=== PATIENT | male | born 1970 | race Two or more races ===

== ENCOUNTER → 2020-04-15 | Emergency (ER) | payer SELFPAY ==
[~2020-04-15] VITALS: Ht 165.1 cm; Wt 65.8 kg
[~2020-04-15] MED LIST: NALOXONE HCL 1MG/ML 2ML SYRINGE IV ONE
[2020-04-15 20:32] LABS: Basophils # (auto) 0.1 10 ^3/uL (0-0.2); Basophils % (auto) 0.6 % (0.0-2.0); Eosinophils # (auto) 0.3 10 ^3/uL (0-0.8); Hematocrit 48.2 % (41.0-53.0); Hemoglobin 16.3 g/dL (13.5-17.5); Lymphocytes # (auto) 1.6 10 ^3/uL (0.4-5.4); Lymphocytes % (auto) 14.2 % (10.0-50.0); Mean Corpuscular Hemoglobin 31.4 pg (28.0-32.0); Mean Corpuscular Hgb Conc. 33.9 g/dL (32.0-36.0); Mean Corpuscular Volume 92.7 fL (80.0-100.0); Monocytes # (auto) 0.8 10 ^3/uL (0-1.3); Monocytes % (auto) 6.5 % (0.0-12.0); Neutrophils # (auto) 8.7 10 ^3/uL (1.6-8.6); Neutrophils % (auto) 75.7 % (37.0-80.0); Nucleated Red Blood Cells % 0.1 %; Platelet Count (auto) 287 10^3/uL (140-450); White Blood Cell 11.6 10^3/uL (4.4-10.8)
[2020-04-15 20:50] LABS: Albumin 3.8 g/dL (3.4-5.0); Anion Gap 6 (5-15); Blood Alcohol < 3.0 mg/dL (0-5); Blood Urea Nitrogen 19 mg/dL (7-18); Calcium 8.7 mg/dL (8.5-10.1); Carbon Dioxide 28 mmol/L (21-32); Chloride 109 mmol/L (98-107); Glucose 122 mg/dL (74-106); Magnesium 2.8 mg/dL (1.6-2.6); Potassium 4.3 mmol/L (3.5-5.1); Salicylate < 1.7 mg/dL (2.8-20.0); Sodium 143 mmol/L (136-145)
[2020-04-15 20:52] LABS: Acetaminophen < 2.0 ug/mL (10-30)
[2020-04-15 20:53] LABS: Alanine Aminotransferase 43 U/L (16-61); Alkaline Phosphatase 110 U/L (45-117); Aspartate Aminotransferase 31 U/L (15-37); BUN/Creatinine Ratio 11.3; Bilirubin, Total 0.3 mg/dL (0.2-1.0); GFR African American 55 mL/min; GFR Non-African American 46 mL/min; Total Protein 7.5 g/dL (6.4-8.2)
[2020-04-15 21:02] LABS: Urine Bacteria NONE SEEN /hpf (None Seen); Urine Blood Negative /uL (Negative); Urine Hyaline Cast FEW /lpf (0 - 2); Urine Mucus FEW (None Seen); Urine Specific Gravity 1.018 (1.001-1.035); Urine WBC 6 /hpf (0 - 3)
[2020-04-15 21:16] LABS: Alcohol, Urine < 3.0 mg/dL (0-10); Amphetamine Screen, Urine POSITIVE (NEGATIVE); Barbiturate Scree,Urine NEGATIVE (NEGATIVE); Benzodiazephine Screen, Urine NEGATIVE (NEGATIVE); Cannabinoid Screen, Urine NEGATIVE (NEGATIVE); Cocaine Screen, Urine POSITIVE (NEGATIVE); Opiate Scree,Urine NEGATIVE (NEGATIVE); Phencyclidine Screen, Urine NEGATIVE (NEGATIVE)
[2020-04-16 02:00] VITALS: BP 129/93
== END | disposition home or self-care (01) ==
LOC: EDBD 19:30 → ER 19:35
DX: T40.601A Poisoning by unspecified narcotics, accidental (unintentional), initial encounter (principal); F19.10 Other psychoactive substance abuse, uncomplicated
CPT/HCPCS: 36415; 70450; 71045; 72125; 80053; 80307; 80320; 80329; 81001; 83735; 85025; 96372; 99285; J2310; 93005